=== PATIENT | female | born 1960 | race Caucasian/White ===

== ENCOUNTER → 2023-09-04 06:21 | Day surgery (SDC) | payer OTHER, SELFPAY | LOC: GI 06:21 | PROVIDERS: ATTENDING PHYSICIAN Internal Medicine Gastroenterology | DX: Z12.11 Encounter for screening for malignant neoplasm of colon (principal); D12.2 Benign neoplasm of ascending colon; D12.3 Benign neoplasm of transverse colon; K63.5 Polyp of colon; K63.89 Other specified diseases of intestine; K62.89 Other specified diseases of anus and rectum; K64.0 First degree hemorrhoids; Z98.890 Other specified postprocedural states; Z86.010 Personal history of colon polyps; Z87.19 Personal history of other diseases of the digestive system | CPT/HCPCS: 45385; 45380; 88305 ==

== ENCOUNTER → 2023-10-05 10:35 | Outpatient (REF) | payer OTHER, SELFPAY | LOC: RAD 10:35 | PROVIDERS: ATTENDING PHYSICIAN Family Medicine | DX: N28.1 Cyst of kidney, acquired (principal); R22.2 Localized swelling, mass and lump, trunk | CPT/HCPCS: 71260; 76775; Q9967 ==

== ENCOUNTER → 2023-12-26 08:09 | Outpatient (REF) | payer OTHER, SELFPAY | LOC: WDC 08:09 | PROVIDERS: ATTENDING PHYSICIAN Obstetrics & Gynecology Gynecology; FAMILY PHYSICIAN Family Medicine | DX: Z12.31 Encounter for screening mammogram for malignant neoplasm of breast (principal) | CPT/HCPCS: 77063; 77067 ==

== ENCOUNTER → 2024-08-29 07:43 | Outpatient (REF) | payer OTHER, SELFPAY | LOC: HWEVLT 07:43 | PROVIDERS: ATTENDING PHYSICIAN Radiology Vascular & Interventional Radiology | DX: I83.893 Varicose veins of bilateral lower extremities with other complications (principal) | CPT/HCPCS: 93970 ==

== ENCOUNTER → 2024-12-17 08:13 | Outpatient (REF) | payer OTHER, SELFPAY | LOC: RAD 08:13 | PROVIDERS: ATTENDING PHYSICIAN Family Medicine | DX: R07.81 Pleurodynia (principal); R10.11 Right upper quadrant pain | CPT/HCPCS: 76700 ==

== ENCOUNTER → 2024-12-27 08:22 | Outpatient (REF) | payer OTHER, SELFPAY | LOC: WDC 08:22 | PROVIDERS: ATTENDING PHYSICIAN Obstetrics & Gynecology Gynecology; FAMILY PHYSICIAN Family Medicine | DX: Z12.31 Encounter for screening mammogram for malignant neoplasm of breast (principal) | CPT/HCPCS: 77063; 77067 ==

== ENCOUNTER 2025-02-26 01:01 | Inpatient (IN) | payer OTHER, SELFPAY ==
[2025-02-25 23:05] VITALS: BP 133/86
[2025-02-25 23:06] VITALS: BP 133/86
[2025-02-25 23:14] VITALS: BMI 24.9
--- NOTE | 2025-02-25 23:15 | ED.GENMED ---
History of Present Illness
General
Chief Complaint: Fainting/Passed Out
Source: patient
Exam Limitations: none
Time Seen by Provider: 02/25/25 23:08
History of Present Illness
History of Present Illness:
See MDM
Past History
Past History
ED Past Medical History: HTN, Hypercholesterolemia and Other (Left ovary dermoid cyst)
ED Past Surgical History: Gynecological (D and C, left breast lumpectomy-benign) and Other (Left inguinal hernia repair)
Social History
Tobacco: Non-smoker
Personal:
Living: with family
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
Family History
Family History: Other (Noncontributory)
Phy Exam
Physical Exam
Physical Exam:
See MDM
Course
Orders/Labs/Results
Orders:
Orders
02/25/25 23:13
Electrocardiogram (*1) Urgent
Reason for Study: Syncope
EKG- Treatment ONCE
0.9% Sodium Chloride 1000 ml [Nss] 1,000 ml IV BOLUS
02/25/25 23:17
Complete Blood Count/With Diff Urgent
Comprehensive Metabolic Panel Urgent
Troponin I Urgent
02/26/25 00:27
Aspirin 300 mg RECTAL NOW STA
Mag Hydrox/Al Hydrox/Simeth [Maalox] 30 ml Phenobarb/Hyoscy/Atropine/Scop [] 10 ml Viscous Lidocaine 2% [Xylocaine Viscous Cup] 10 ml PO NOW
02/26/25 00:30
Mag Hydrox/Al Hydrox/Simeth [Maalox] 30 ml .ROUTE .STK-MED ONE
Phenobarb/Hyoscy/Atropine/Scop [] 10 ml .ROUTE .STK-MED ONE
Viscous Lidocaine 2% [Xylocaine Viscous Cup] 15 ml .ROUTE .STK-MED ONE
Abnormal Lab Results
02/25/25
23:17
WBC 20.5 H 10^3/uL
(4.8-10.8)
Hgb 11.0 L g/dL
(12.0-16.0)
Hct 34.9 L %
(37.0-47.0)
MCV 78.4 L fL
(81.0-99.0)
MCH 24.7 L pg
(27.0-31.0)
MCHC 31.5 L g/dL
(33.0-37.0)
RDW 15.3 H %
(11.5-14.5)
Abs Immat Gran (auto) 0.1 H 10^3/uL
(0-0.05)
Absolute Neuts (auto) 16.1 H 10^3/uL
(1.4-6.5)
Absolute Monos (auto) 1.4 H 10^3/uL
(0.1-0.6)
Neutrophils % 78.4 H %
(42.2-75.2)
Lymphocytes % 13.1 L %
(20.5-51.1)
BUN 27 H mg/dl
(7-17)
Glucose 135 H mg/dl
(70-99)
Troponin I 0.238 H* ng/ml
02/25/25 23:17
02/25/25 23:17
Vital Signs
Initial and Last Documented VS:
Initial Vital Signs
Temp Pulse Resp BP Pulse Ox
97.8 F 96 12 133/86 98
02/25/25 23:05 02/25/25 23:05 02/25/25 23:05 02/25/25 23:05 02/25/25 23:05
Last Documented Vital Signs
Temp Pulse Resp BP Pulse Ox
97.8 F 99 14 133/86 98
02/25/25 23:05 02/25/25 23:07 02/25/25 23:07 02/25/25 23:06 02/25/25 23:17
MDM/Problems Addressed
Differential Diagnosis Includes:
Note:
CHIEF COMPLAINT(S)
Syncope and gastrointestinal symptoms (vomiting and diarrhea).
HISTORY OF PRESENT ILLNESS
The patient is a 64-year-old female who reports experiencing syncope, vomiting, and diarrhea. The symptoms began today at approximately 9:00 PM. She described the room spinning, leading her to a near-syncope episode, followed by actual syncope and
multiple episodes of vomiting and diarrhea. She called her for assistance. Prior to syncope, she felt unwell with a sensation of her heart racing. Currently, she feels better.
ADDITIONAL HISTORY OBTAINED FROM SOURCES OTHER THAN THE PATIENT
Per the patient�s spouse, the patient called out before becoming unresponsive, indicating awareness of feeling unwell prior to the syncopal episode.
PHYSICAL EXAM
General: Alert, no acute distress.
Skin: Warm, dry.
Head: Normocephalic, atraumatic
Neck: Appears supple, trachea midline.
Eyes, Ears, Nose, Mouth, and Throat: Mildly dry mucous membranes
Cardiovascular: No signs of cyanosis. Regular rate and rhythm
Respiratory: Respirations are non-labored.
Abdomen: Non-distended
Musculoskeletal: No deformities. Negative [place]-Hallpike
Neurological: No focal neurological deficit observed.
Psychiatric: Cooperative, appropriate mood and affect.
PLAN
- Monitor patient on telemetry for arrhythmias.
- Obtain blood work and provide intravenous fluids.
- Consider communication with primary care physician for follow-up, including possible Holter monitor evaluation.
DIFFERENTIAL DIAGNOSIS
The Differential Diagnosis includes, in no particular order and is not limited to:
- Cardiac arrhythmia
- Gastroenteritis/Viral infection
- Vasovagal syncope
- Dehydration
- Orthostatic hypotension
- Medication side effect
- Hypoglycemia
- Anemia
- Neurological disorder such as seizure
- Vestibular disorder
SUMMARY OF ENCOUNTER
The patient presented to the emergency department with syncope and gastrointestinal symptoms (vomiting and diarrhea) that began earlier today. Initial management in the emergency department includes telemetry monitoring and intravenous fluid
administration. The patient has a history of a similar episode two years ago when she was diagnosed with sepsis. Her symptoms have improved since her arrival in the emergency department.
MEDICAL DECISION MAKING
- Number and Complexity of Problems Addressed:
Chronic conditions affecting care [N/A]
- Data:
Category 1:
- Independent review of telemetry monitoring.
- Risk:
Consideration of Admission/Observation: Escalation of care including admission/observation was considered given the complexity and risk of the patients presenting complaint, exam findings, and/or their underlying comorbidities. However, ultimately,
I feel the patient is safe for outpatient management with close follow-up. Reasoning: Work-up reassuring, does not reveal any acute life/organ-threatening processes, patients symptoms well controlled upon reevaluation, reexamination is reassuring,
vitals are stable, patient agreeable with discharge, reliable for follow-up.
EKG
My independent EKG interpretation is:
- Rhythm: Sinus rhythm
- Heart rate: 87 beats per minute
- Notable interval: First degree AV block noted
- [place]: Normal axis
- ST segment changes: No ST elevation
- QT interval: Mildly prolonged
SUMMARY OF ENCOUNTER
The patient, a 64-year-old female, presented to the emergency department for evaluation of syncope, vomiting, diarrhea, and recent chest pressure. Upon work-up, she was found to have leukocytosis and an elevated troponin level at 0.238, indicating
possible cardiac involvement. However, the EKG did not show ischemic changes, although the patient did report chest pressure earlier in the day, raising concerns for an atypical anginal equivalent. The patient is not currently experiencing chest
pain or shortness of breath but does have mild reflux symptoms. Management in the emergency department involves telemetry monitoring, intravenous fluids, and administration of rectal aspirin due to her hesitance to take NSAIDs orally because of
reflux concerns.
DISPOSITION
Admit for troponin trending and further work-up.
ASSESSMENT
Elevated troponin in the context of previous chest pressure and recent syncopal episode raises concern for possible acute coronary syndrome, though the lack of ischemic changes on EKG makes other differential diagnoses such as gastroenteritis or
vasovagal syncope, equally compelling. However, due to the cardiac biomarkers and presenting symptoms, inpatient admission for further observation and evaluation is warranted.
EMERGENCY TREATMENTS ADMINISTERED
Rectal aspirin administered for cardiovascular protection.
PLAN
Admit the patient for further observation, including troponin trending and cardiac monitoring. Continue evaluation for potential causes of syncope and gastrointestinal symptoms.
INDEPENDENT REVIEW OF LABS AND INTERPRETATION OF TESTS
My independent review of CBC indicates leukocytosis.
ADDITIONAL TESTING AND IMAGING CONSIDERED
Further cardiac imaging such as an echocardiogram was considered but deferred to inpatient admission for a more comprehensive workup.
MEDICATION RECONCILIATION
Aspirin (rectal route) administered during the visit due to hesitance for oral NSAIDs.
MEDICAL DECISION MAKING
-Complexity of Data Reviewed: Chronic conditions affecting care include the patients previous history with sepsis two years ago, noting differential diagnoses such as cardiac arrhythmia, gastroenteritis/viral infection, vasovagal syncope,
dehydration, orthostatic hypotension, medication side effects, hypoglycemia, anemia, neurological disorder such as seizure, and vestibular disorder.
-Data:
Category 1
Tests and documents: Elevated troponin level identified, leukocytosis found in lab results, EKG independently interpreted showing no ischemic changes.
Category 2
Clinical information obtained from an independent historian: Input from the patients spouse regarding her awareness prior to the syncopal episode.
Category 3
No discussions with other healthcare providers explicitly mentioned.
-Risk:
Admission for trending of troponin levels due to elevated troponin and possible cardiac risk, with consideration of further diagnostic testing and monitoring.
DIAGNOSIS
- Syncope, ICD-10: R55
- Gastroenteritis, unspecified, ICD-10: A09
- Elevated cardiac biomarkers, likely due to acute coronary syndrome, ICD-10: I21.4
*Pulse Oximetry
SaO2: 98
Oxygen Mode of Delivery: Room air
Patient hypoxic: no
*Critical Care Note
Total Time (30-74mins, 75-104mins- exclusive of procedures): Not Applicable
ED Attending Note
-
Portions of this chart may have been created with voice recognition software.� Occasional wrong word or��sound alike� substitutions may have occurred due to the inherent limitations of voice recognition software.
Discharge Plan
Departure
Patient Disposition: Admit
Date of Disposition: 02/26/25
Time of Disposition: 00:35
Admit to: Telemetry
Presentation/result/management discussed w/ accepting MD/DO: Hospitalist
Discharge Problem:
Syncope
Prescriptions:
No Action
lisinopril 20 mg Tablet
20 mg PO DAILY Qty: 0
alprazolam 0.25 mg Tablet
0.25 mg PO DAILY PRN (Reason: anxiety) Qty: 0
famotidine 20 MG tablet
20 mg PO DAILY PRN (Reason: heartburn)
cholecalciferol (vitamin D3) 25 mcg (1,000 unit) Tablet
25 mcg PO WEEKLY Qty: 0
lisinopril-hydrochlorothiazide 20-12.5 mg tablet
1 tab PO QPM
dicyclomine 10 mg Capsule
10 mg PO QID Qty: 20 0RF
metronidazole 500 mg Tablet
500 mg PO TID Qty: 21 0RF
levofloxacin 500 mg Tablet
500 mg PO DAILY Qty: 7 0RF
Referrals:
Haydee Loco MD [Family Provider, Family Practice]
Interventions
Interventions:
*Risk Screen - Suicide Last Done: 02/25/25 23:09
*General Assessment Last Done: 02/25/25 23:09
*Neglect/Abuse Screening Last Done: 02/25/25 23:09
*ED COVID-19 Vaccine History Last Done: 02/25/25 23:09
*ED Influenza Vaccine History Last Done: 02/25/25 23:09
[facility] Fall Risk Assessment Tool Last Done: 02/25/25 23:14
ED- Cardiac Assessment Last Done: 02/25/25 23:13
ED- Neurological Assessment Last Done: 02/25/25 23:13
Discharge Date and Time
Print Language: BANGLADESHI
[2025-02-25] MEDS: NSS 1000 IV (23:20)
[2025-02-25 23:30] LABS: Hematocrit 34.9 % (37.0-47.0); Hemoglobin 11.0 g/dL (12.0-16.0); Mean Corp Hgb Conc. 31.5 g/dL (33.0-37.0); Mean Corpuscular Volume 78.4 fL (81.0-99.0); Nucleated Red Blood Cells % 0 %; Platelet Count 388 10^3/uL (130-400); Red Cell Dist. Width 15.3 % (11.5-14.5)
[2025-02-26] VITALS (18 sets, daily range): BP systolic 102–152; BP diastolic 67–115; BMI 25.1
[2025-02-26] LABS: ALT (SGPT) 20 U/L (0-35); AST (SGOT) 25 U/L (14-36); Albumin 4.3 g/dl (3.5-5.0); Alkaline Phosphatase 64 U/L (38-126); Blood Urea Nitrogen 27 mg/dl (7-17); Calcium 9.8 mg/dl (8.4-10.2); Carbon Dioxide 27 mmol/L (22-30); Chloride 104 mmol/L (98-107); Estimated Creatinine Clearance 74 ml/min; Glucose 135 mg/dl (70-99); Potassium 3.8 mmol/L (3.5-5.1); Sodium 137 mmol/L (135-145); Total Protein 7.2 g/dl (6.3-8.2); eGFR > 60.00
[2025-02-26 00:17] LABS: Troponin I 0.238 ng/ml
[2025-02-26] MEDS: MAALOX 50 PO (00:33)
[2025-02-26] MEDS: ASPIRIN 300 MG RECTAL (00:33)
--- NOTE | 2025-02-26 01:29 | HPS.HSE ---
Family Physician
-
Family Physician: Haydee Loco
Chief Complaint
-
chest pressure syncopal episode
History of Present Illness
64 female history of hypertension hyperlipidemia left ovary dermoid cyst who presents after syncopal episode while on the toilet and vomiting. Prior to this admits to chest pressure midsternal heart beating hard nonradiating with associated nausea
subsequently making her vomit. Syncopal episode was witnessed on toilet by her . states that she was talking and passed out while vomiting. Downtime approximately 1 minute was not confused. When she came to she has for rescue
squad to be called.
Should be noted she did admit to taking 600 mg of Advil in the morning and 400 mg Aleve in the evening. She typically takes this on a full stomach. And even sometimes will take it with Pepcid AC. She cannot tolerate Prilosec secondary to
headaches.
Additionally had a stress test November 2023 without concerning findings. Follows with Dr. Keyes
Medical History
Past Medical History
Past Medical History: Reports HTN
Past Surgical History: Reports Gynocological
Social History
Tobacco: Non-smoker
Alcohol: None
Drug: None
Personal:
Living: With Family
Family History
Family History: Not pertinent
Allergies / Home Medications
Allergies reflects when Allergies were last updated in [facility].
Home Medications with original date entered in [facility]
Allergy/Medication List:
Allergies
Allergy/AdvReac Type Severity Reaction Status Date / Time
No Known Allergies Allergy Verified 10/12/22 12:38
Home Medications
alprazolam 0.25 mg tablet 0.25 mg PO DAILY PRN anxiety ##0 11/24/20
lisinopril 20 mg tablet 20 mg PO DAILY Blood Pressure ##0 11/24/20
cholecalciferol (vitamin D3) 25 mcg (1,000 unit) tablet 25 mcg PO WEEKLY Supplement ##0 10/06/21
famotidine 20 mg tablet 20 mg PO DAILY PRN heartburn 12/23/20
lisinopril 20 mg-hydrochlorothiazide 12.5 mg tablet 1 tab PO QPM Blood Pressure 10/12/22
dicyclomine 10 mg capsule 10 mg PO QID #20 caps 10/16/22
levofloxacin 500 mg tablet 500 mg PO DAILY #7 tabs 10/16/22
metronidazole 500 mg tablet 500 mg PO TID #21 tabs 10/16/22
Review of Systems
-
A 12 point ROS was completed and negative except as noted: Yes
Physical Exam
Vital Signs
Vital Signs
Temp Pulse Resp BP Pulse Ox
97.8 F 102 21 140/96 97
02/25/25 23:05 02/26/25 01:00 02/26/25 01:00 02/26/25 01:00 02/26/25 01:00
Physical Exam
General: Well Developed, Well Nourished and No Apparent Distress
HEENT: NormoCephalic and Anicteric
Respiratory: Clear
Cardiac: S1/S2 and Regular Rhythm
GI: Soft, Non Tender, Non Distended and Normal Bowel Sounds
Musculoskeletal: No Clubbing and No Cyanosis
Skin: Warm and Dry
Neuro: Awake and AO x 3
Psych: Calm
Laboratory Results
-
02/25/25 23:17
02/25/25 23:17
Laboratory Results
Total Bilirubin 0.3 mg/dl (0.2-1.3) 02/25/25 23:17
AST 25 U/L (14-36) 02/25/25 23:17
ALT 20 U/L (0-35) 02/25/25 23:17
Alkaline Phosphatase 64 U/L (38-126) 02/25/25 23:17
Troponin I 0.238 ng/ml H* 12/09/25 23:17
Impression/Plan
-
Syncopal episode
Differential diagnosis includes ACS versus for seizure but less likely versus vasovagal versus orthostatic hypotension/orthostasis, PE though less likely as not hypoxic and Wells score 1.5 for tachycardia greater than 100
Orthostatic vitals
2D echocardiogram
Telemetry
Repeat EKG
Consult cardiology
Check D-dimer
NSTEMI
Trend troponin to peak
Heparinized, discussed risk vs benefits with Ms. Norton and at bedside, both elect to proceed with initiation of Hep gtt
-If trop trending down or cards beleives less like ACS then can consider to DC hep gtt
N.p.o. for potential LHC
Consult cardiology
2D echocardiogram
Check D-dimer
Hypertension
On lisinopril 20 mg daily as outpatient
[2025-02-26 02:19] LABS: Hematocrit 32.3 % (37.0-47.0); Hemoglobin 10.3 g/dL (12.0-16.0); Mean Corp Hgb Conc. 31.9 g/dL (33.0-37.0); Mean Corpuscular Volume 79.2 fL (81.0-99.0); Platelet Count 319 10^3/uL (130-400); Red Cell Dist. Width 15.3 % (11.5-14.5)
[2025-02-26] MEDS: 0.45%NACL 1000 IV (02:19)
[2025-02-26] MEDS: HEPARIN 25000 UNITS/250 ML IV (02:20)
[2025-02-26 02:22] LABS: APTT 26.2 Sec (23.4-35.0)
[2025-02-26 02:32] LABS: D-Dimer 7.09 ug/mlFEU (0.00-0.50)
[2025-02-26 02:45] LABS: Blood Urea Nitrogen 22 mg/dl (7-17); Calcium 8.4 mg/dl (8.4-10.2); Carbon Dioxide 22 mmol/L (22-30); Chloride 110 mmol/L (98-107); Estimated Creatinine Clearance 84 ml/min; Glucose 124 mg/dl (70-99); HDL Cholesterol 61 mg/dl; LDL Cholesterol, Calculated 137 mg/dl; Potassium 3.6 mmol/L (3.5-5.1); Sodium 140 mmol/L (135-145); Very Low Density Lipoprotein 10 mg/dl (0-30); eGFR > 60.00
[2025-02-26 03:01] LABS: Troponin I 0.687 ng/ml
[2025-02-26] MEDS: XANAX 0.25 MG PO (03:08)
--- NOTE | 2025-02-26 04:45 | PTCARENOTE ---
Rec'd pt as admission from ED. Pt admission complete. Pt AAO*3, VSS, and Stach on tele monitor. Pt bp elevated in the 150's systolic and pt reports being anxious. MIRANDA finch notified and rec'd order for one time Xanax. Given to pt as ordered
and heparin initiated with fluids as ordered. Pt denies any pain or discomfort currently. Ddimer resulted at 7.09 MIRANDA finch notified and rec'd order for stat CT scan of lungs. Pt escorted down to ed ct scan with RN in hospital bed. Pt brought
back to unit and now resting with call abdalla in reach. See MAR and flowchart for full pt care and assessment.
[2025-02-26 07:19] LABS: Glycohemoglobin (HgbA1c) 6.0 % (4.0-5.9)
[2025-02-26 09:16] LABS: APTT 44.9 Sec (23.4-35.0)
--- NOTE | 2025-02-26 09:20 | CON.CAR ---
Addendum entered and electronically signed by Luiz Keyes MD 02/26/25 11:01:
I saw and examined the patient independently and performed majority of MDM.
The MANAGER CATH LAB's note was reviewed and I agree with the note with changes/additions below.
Comment: 64 yo female with PMH of HTN, dyslipidemia, 1st degree AVB, left breast cancer s/p lumpectomy and radiation 2014 is admitted with chest tightness, GI upset, syncope. She felt anxiety and chest tightness around 9pm, then some GI upset, and
subsequently syncope after a bowel movement. She feels back to baseline now. Exam with RRR, no murmurs, no edema. TnI 0.659 and rising. EKG with NSR, 1st degee AVB, nonspecific ST abnl.
Chest tightness, syncope, elevated troponin. Concern for ACS, which is a threat to life, and started on ASA and heparin drip. Golden is also on ddx. Will start with echo, and then decide on plan for cardiac cath.
h/o left breast cancer and radiation. This increases her risk for CAD and valvular heart disease.
Original Note:
Consultation
Consultation Request
Date/Time Consultation Requested: 02/26/25137
Date/Time Consultation Performed: 02/26/25919
Requesting Provider: Dr. Colt Pradhan
Performing Provider: Haley JEAN for Dr. Keyes
Reason for Consultation: syncope
Medical History
-
Chief Complaint: syncope
History of Present Illness:
64 y/o female (has seen Dr. Keyes in OP office once in 2022) with HTN, 1st degree AVB, dyslipidemia, anxiety, preDM, and left breast cancer 2014 (lumpectomy and radiation, no chemo). She is here for evaluation after last night around 9 PM, she was
walking in her house and developed midsternal chest tightness for about 15 minutes. Her stomach felt upset and gassy and she had a BM. Afterward, while still on the toilet, she became dizzy and called her to come into the bathroom where she
passed out. She did not fall became he was there to support, but when she came to she noted she had vomited. She came to the ER and is admitted for further evaluation. Troponin is elevated 0.687. She looks and feels fine at the time of my
assessment, just some fatigue now. No CP. D-dimer was elevated, but no PE on CT scan. She is ST on monitor. She has leukocytosis, but denies any fever or chills. Of note, she was hospitalized with sepsis and colitis 2 years ago- she passed out prior
to that as well, and felt to be GI related. Trops were abnormal 0.1. [place] to be acute, non-ischemic myocardial injury secondary to acute illness. Follow-up stress echo was normal.
Past Medical History
Past Medical History: Cancer, HTN, Hypercholesterolemia and Psychiatric (anxiety)
Social History
Tobacco: Non-Smoker
Family History
Family History: CAD (dad [place] age 65)
Allergies / Home Medications
Allergy/AdvReac Type Severity Reaction Status Date / Time
No Known Allergies Allergy Verified 10/12/22 12:38
�Medication �Instructions �Recorded �Confirmed �Type
alprazolam 0.25 mg tablet 0.25 mg PO DAILY PRN anxiety ##0 11/24/20 02/26/25 History
lisinopril 20 mg tablet 20 mg PO DAILY Blood Pressure ##0 11/24/20 02/26/25 History
famotidine 20 mg tablet 20 mg PO DAILY PRN heartburn 12/23/20 02/26/25 History
Review of Systems
-
History Source: Patient
All other systems: Negative unless noted
Cardiac: Chest Pain and Syncope
Abdomen/GI: Vomiting and Other (upset stomach, gassy)
Neurological: Dizzy
Physical Exam
Vital Signs
Temp Pulse Resp BP Pulse Ox
98.7 F 107 20 134/77 97
02/26/25 07:57 02/26/25 03:59 02/26/25 07:57 02/26/25 03:59 02/26/25 07:57
Lab Results
02/26/25 02:08
02/26/25 02:08
Troponin I 0.687 ng/ml H* D 02/26/25 02:08
Physical Exam
General: Well Developed, Well Nourished and No Apparent Distress
HEENT: Normocephalic and Anicteric
Respiratory: Clear and Non Labored Respirations
Cardiac: Regular Rhythm
Musculoskeletal: No Edema
Skin: Warm and Dry
Neuro: AO x 3
Psych: Calm
Impression / Plan
-
Syncope:
-possible vagal in setting of GI symptoms as noted in detail, but cardiac evaluation as below
-telemetry shows sinus tachycardia- continue to follow
-no PE on CT scan
-abnormal troponin- see below
-checking echo
Abnormal troponin:
-etiology unclear, but possible ACS (diagnosis that is threat to life); patient had chest pain yesterday as noted in detail and EKG with NS anterior ST changes- repeat. Takotsubo also in differential. CP free now. No SOB.
-trend troponin to peak, obtain echo
-continue IV heparin, which requires intensive monitoring. Received 300 mg ASA LA early this AM- will start aspirin 81 mg daily this AM.
-may need cardiac cath
Leukocytosis:
-denies any fever or chills
-sinus tachycardia is noted
-w/u/management per primary
Hypertension:
-stable overall
-on ACEI as OP
Anemia:
-follow
Data Reviewed
-
EKG: Tracing Personally Visualized and interpreted (SR with 1st degree AVB, NT ST changes anterior)
CT Scan: Report Reviewed by me (Chest: no acute disease of the chest. No pulmonary embolus. Hepatic cysts. Stable Findings consistent with minimal emphysematous disease. Stable)
Medical Tests (Nuc Med, Echo etc): Other (stress echo 2022: no evidence for ischemia)
Labs: Labs Reviewed by me
[2025-02-26 09:41] LABS: Troponin I 0.659 ng/ml
--- NOTE | 2025-02-26 10:15 | CM ---
Reviewed chart. Met with Mrs. Norton to review discharge plans. She states prior to admission she resides with her spouse in a two story home with four steps to enter from the side door, two steps from the front door and a full flight from the
basement. She states she has a full flight of steps to get to bedroom/ full bathroom.. 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 She states prior to admission she was
independent with ambulation and adls. She states she does not have any DME in the home. She states she has a prescription plan and uses [facility]. Will need to see her current functional level to see if she will have any skilled care needs.
Medical work-up in progress. The discharge plan is to return home with her spouse when medically stable.
--- NOTE | 2025-02-26 10:27 | PTCARENOTE ---
received patient this am very anxious, talked to patient and about plan today that we need to wait for cardiology to come see her. monitor shows NSR with a first degree, IV heparin @ 1300 units /hr via left ac. patient remains NPO unil
plans are made. EKG completed as ordered and aspirin 81 po given as ordered.
--- NOTE | 2025-02-26 10:38 | CARDSERVLU ---
Echocardiogram with Lumason completed after protocol screening completed. Allergies verified.
Patent IV site: __L AC ___
IV site flushed with 0.9% NaCl pre and post administration.
Diluted bolus method utilized to enhance visualization of ventricular sharma.
Total volume given: _2.5___ mL
Patient tolerated all procedures well without complications.
[2025-02-26] MEDS: LOW STRENGTH ASPIRIN 81 MG PO (10:49)
--- NOTE | 2025-02-26 11:25 | W.PN.UPDATE ---
Update Note
Progress Note Update
Patient seen and examined after postmidnight admission. Currently denies any chest pain. Vital signs stable. No acute distress, awake and alert. Regular rate and rhythm, normal S1-S2. Clear to auscultation bilaterally. Case discussed with
Stephy. I personally reviewed the patient's echocardiogram with him. She has hypokinesis at the apex. Likely going for cardiac cath today.
[2025-02-26] MEDS: TOPROL XL 25 MG PO (11:45)
--- NOTE | 2025-02-26 13:45 | PTCARENOTE ---
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 instructed patient on post cath procedures, verbalizes understanding. Monitor shows NSR, VSS. Dr. Mcqueen at bedside.
--- NOTE | 2025-02-26 14:39 | ITS.CL.CATH ---
[facility] - Catheterization
Cardiac Catheterization
Procedure Report:
CARDIAC CATHETERIZATION REPORT
Date of Procedure: 02/26/2025
Referring: Luiz Keyes M.D., Ph.D.
INDICATION: Non-ST elevation myocardial infarction.
PROCEDURE:
1. Left heart catheterization.
2. Coronary angiography.
3. Left ventriculography.
A total of 33 minutes of procedural/moderate sedation was utilized. An independent medical coding instructor was present to assist with and help manage the patient's level of consciousness and physiologic status.
ACCESS:
1. 6 [place]in right radial artery using a modified Seldinger technique delete delete the.
CATHETERS:
1. 5 [place] JR4.
2. 5 [place]in JL 3.5.
3. 5 [place] multipurpose.
4. 5 [place]in angled pigtail.
HEMODYNAMIC DATA
Weight (kg): 74.4
AO (s/d/x, mmHg): 114/75/94
LV (s/x mmHg): 114/9
AV gradient (x, mmHg): None.
LEFT VENTRICULOGRAPHY: Normal left ventricular size with hyperdynamic function of the basal and mid ventricle with akinesis/mild dyskinesis of the apex. Left ventricular ejection fraction estimated at 75%. There is mild mitral regurgitation.
There is no aortic valve insufficiency. The aortic root, ascending aorta and visualized descending thoracic aorta appear normal.
CORONARY ANGIOGRAPHY
Dominance: Left.
Left Main: Normal size, bifurcating vessel. There is no coronary artery disease.
LAD: Normal size vessel giving rise to 1 significant diagonal. There is no coronary artery disease. The mid and distal vessel as well as the diagonal are severely tortuous.
Ramus: Congenitally absent.
Circumflex: Large size, dominant vessel giving rise to 1 large obtuse marginal before terminating as an LPDA. The first obtuse marginal bifurcates into 2 medium to large sized branches. There is severe tortuosity in both OM branches as well
as the LPDA. There is no coronary artery disease.
RCA: Small size, nondominant vessel with a low-lying, anterior origin, best cannulated by a multipurpose catheter.
INTERVENTION(S)
None.
Closure Device: Vascular band.
Radiation (mGy): 270
DAP (cm2.Gy): 11.2
Fluoroscopy time (minutes): 3.7
CONCLUSIONS
1. Left dominant circulation with no coronary artery disease. The distal coronary vessels are severely tortuous.
2. Normal filling pressures (LVEDP = 9 mmHg at 74.4 kg).
3. Hyperdynamic systolic function of the base and mid ventricle with akinesis/dyskinesis of the apex, possibly focal myocarditis versus Takotsubo variant. Left ventricular ejection fraction estimated at 75%.
RECOMMENDATIONS:
1. Expectant management after cardiac catheterization via right radial approach.
2. Limited weight bearing on the right wrist for one week.
3. GDMT as hemodynamics will tolerate. No role for diuresis at this time.
4. Trend troponin to peak.
Copy to: Luiz Keyes M.D., Ph.D., Haydee Loco M.D.
Yehuda Mcqueen DO, FACC, FACP
--- NOTE | 2025-02-26 23:32 | PTCARENOTE ---
Rec'd pt at change of shift. Pt AAO*3, VSS, and SR on tele monitor. Pt denies any pain or discomfort. R radial site CDI. Pt updated on discharge planning and now resting with call abdalla in reach. See MAR and flowchart for full pt care and
assessment.
[2025-02-27 03:03] VITALS: BP 133/84
[2025-02-27 03:18] VITALS: BMI 24.9
[2025-02-27 04:01] LABS: Hematocrit 27.5 % (37.0-47.0); Hemoglobin 8.8 g/dL (12.0-16.0); Mean Corp Hgb Conc. 32.0 g/dL (33.0-37.0); Mean Corpuscular Volume 79.0 fL (81.0-99.0); Platelet Count 270 10^3/uL (130-400); Red Cell Dist. Width 15.4 % (11.5-14.5)
[2025-02-27 04:29] LABS: Blood Urea Nitrogen 13 mg/dl (7-17); Calcium 9.1 mg/dl (8.4-10.2); Carbon Dioxide 25 mmol/L (22-30); Chloride 106 mmol/L (98-107); Estimated Creatinine Clearance 84 ml/min; Glucose 100 mg/dl (70-99); Potassium 3.9 mmol/L (3.5-5.1); Sodium 137 mmol/L (135-145); eGFR > 60.00
[2025-02-27 07:56] VITALS: BP 120/89
[2025-02-27] MEDS: TOPROL XL 25 MG PO (07:57)
[2025-02-27] MEDS: LOW STRENGTH ASPIRIN 81 MG PO (07:57)
[2025-02-27] MEDS: ZESTRIL 20 MG PO (07:57)
--- NOTE | 2025-02-27 08:50 | W.PN.HOSP.TC ---
Addendum entered and electronically signed by Taj Medina MD 02/27/25 12:31:
Total time spent on d/c = 34 min. This included today's physical exam, progress note, review of laboratory and diagnostic data, preparation of discharge documents and prescriptions, and discussions about the pt's hospital course and discharge plan
with the patient and other biomedical specialist involved in the patient's care.
Original Note:
Today's Communication/Plan
-
see plan
Assessment / Plan
Assessment / Plan
Gen: NAD, AAOx3.
Eyes: EOMI, PERRLA, no scleral icterus.
Neck: supple.
CV: remains RRR, +S1/S2, no m/r/g.
Resp: CTAB anteriorly, no rales, wheezes, or rhonchi.
Skin: No rashes. R radial cath site without hematoma, 2+ radial pulse
Neuro: CN 2-12 intact, non-focal.
Psych: Normal mood and affect.
CTA chest: No acute disease of the chest. No pulmonary embolus. Hepatic cysts. Stable. Findings consistent with minimal emphysematous disease. Stable. If the patient has emphysema, patient should be assessed for an annual low dose lung cancer CT
program, as pulmonary emphysema is an independent risk factor for lung cancer.
Echo:
1. Left ventricular ejection fraction is overall normal with an ejection fraction of 55-60%.
2. The apex is akinetic, and the other segments are hyperdynamic.
3. Moderate eccentric mitral valve regurgitation. (Image 49.).
4. Compared to 10/13/22: Apical akinesis is now present, and mitral regurgitation has progressed from trace to moderate.
LHC:
1. Left dominant circulation with no coronary artery disease. The distal coronary vessels are severely tortuous.
2. Normal filling pressures (LVEDP = 9 mmHg at 74.4 kg).
3. Hyperdynamic systolic function of the base and mid ventricle with akinesis/dyskinesis of the apex, possibly focal myocarditis versus Takotsubo variant. Left ventricular ejection fraction estimated at 75%.
Takutsubo cardiomyopathy, with acute non-ischemic myocardial injury:
-Presented with chest pressure and a syncopal episode
-trop peaked at 0.687, now trending down
-note syncopal episode was after a bowel movement and was likely vasovagal
-echo above and notable for akinetic apex
-cath above, no CAD
-case discussed at length with Dr. Keyes
Microcytic anemia:
-h/o chronic anemia
-no evidence of active bleeding
-repeat Hb prior to d/c
-check Fe studies for outpt f/u
Other problems:
Essential HTN: cont BB/ACEi
Leukocytosis: likely reactive, now resolved
HLD
1st degree AVB
L breast CA s/p lumpectomy and radiation 2014
FULL
DVT proph: was on heparin gtt prior. Start SCDs.
Anticipated Discharge: Today
Subjective/Interval History
-
Date of Service: February 27, 2025
Denies CP/SOB. Also denies melena/hematochezia/hematuria or any other evidence of bleeding.
Objective Data
-
Labs:
Laboratory Results
02/26/25 02/27/25
15:30 03:15
WBC 8.6
Hgb 8.8 L
Hct 27.5 L
Plt Count 270
APTT Cancelled
Sodium 137
Potassium 3.9
Chloride 106
Carbon Dioxide 25
BUN 13
Creatinine 0.7
Glucose 100 H
Calcium 9.1
Vital Signs:
Vital Signs
Temp Pulse Resp BP Pulse Ox
98.5 F 71 15 133/84 97
02/27/25 07:56 02/27/25 07:00 02/27/25 07:56 02/27/25 03:03 02/27/25 07:56
I&O
02/26/25 02/27/25 02/28/25
06:59 06:59 06:59
Intake Total 546 / 546 816 / 816
Balance 546 / 546 816 / 816
[2025-02-27 09:32] VITALS: BP 114/77
[2025-02-27 09:34] VITALS: BP 124/70
--- NOTE | 2025-02-27 10:00 | CM ---
Reviewed chart. Met with Mrs. Norton to review discharge plans. She states she is feeling well and maybe able to go home soon. Prior to admission she resides with her spouse in a two story home with four steps to enter from the side door, two steps
from the front door and a full flight from the basement. She has a full flight of steps to get to bedroom/ full bathroom.. 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 Prior to
admission she was independent with ambulation and adls. She does not have any DME in the home. She has a prescription plan and uses [facility]. Will need to see her current functional level to see if she will have any skilled care needs.
Medical work-up in progress. The discharge plan is to return home with her spouse when medically stable.
--- NOTE | 2025-02-27 10:25 | W.PN.CD ---
Today's Communication / Plan
-
move Toprol XL to 25mg qHS
continue lisinopril 20mg daily
repeat Hgb, then decide on discharge planning
Impression / Plan
-
Takutsubo cardiomyopathy, with acute non-ischemic myocardial injury
-EF is overall preserved with apical akinesis
-started Toprol XL 25mg daily this admission: will move to qHS dosing due to fatigue; and will not titrate dose at this time
-will repeat echo as outpatient in 6-12 week window
Anemia: acute on chronic, type unspecified
-repeat Hgb
Leukocytosis: resolved
Hypertension:
-stable: continue lisinopril 20mg daily
Physical Exam
Vital Signs/Labs
Vital Signs
Temp Pulse Resp BP Pulse Ox
98.5 F 79 15 124/70 98
02/27/25 07:56 02/27/25 10:00 02/27/25 07:56 02/27/25 09:34 02/27/25 07:56
02/26/25 02/27/25 02/28/25
06:59 06:59 06:59
Actual Weight 74.8 kg 74.2 kg
02/27/25 03:15
APTT Cancelled 02/26/25 15:30
Triglycerides 52 mg/dl (10-149) 02/26/25 02:08
LDL Cholesterol, Calc 137 mg/dl 02/26/25 02:08
VLDL Cholesterol, Calc 10 mg/dl (0-30) 02/26/25 02:08
HDL Cholesterol 61 mg/dl 02/26/25 02:08
LAB Results
02/25/25 02/26/25 02/26/25
23:17 02:08 08:35
Troponin I 0.238 H* 0.687 H* D 0.659 H*
02/26/25
17:38
Troponin I Cancelled
Physical Exam
Constitutional: No acute distress and Comfortable
EENT: Moist mucous membranes
Cardiovascular: Rhythm & rate is regular, Pedal edema is absent, JVD pressure is normal and Systolic murmur absent
Respiratory: Respiratory effort normal and Lungs clear to auscul.
Neuro/Psych: AO x 3
Data Reviewed
-
Date of Service: February 27, 2025
EKG: Other (Tele: NSR 70s, no arrhythmia)
Labs: Labs Reviewed by me
[2025-02-27 11:13] LABS: Iron 58 ug/dl (37-170)
[2025-02-27 11:14] LABS: Hemoglobin 9.5 g/dL (12.0-16.0)
[2025-02-27 11:22] LABS: Total Iron Binding Capacity 343 ug/dl (265-497)
--- NOTE | 2025-02-27 11:31 | PTCARENOTE ---
Patient denies lightheadedness, just feeling fatigued. walking in the room. VSS. Repeat Hgb 9.5, using call abdalla for assistance
[2025-02-27 11:47] VITALS: BP 138/90
[2025-02-27 12:02] LABS: Ferritin 11.3 ng/ml (11.1-264.0)
--- NOTE | 2025-02-27 12:51 | PTCARENOTE ---
Patient discharged to home. IV and telemetry removed. Discharge teaching provided, she verbalized understanding. Patient escorted to [facility] in a wheelchair
--- NOTE | 2025-02-27 13:57 | W.DCSUMMARY ---
Discharge Summary
Discharge Data
Date of Admission: 02/26/25
Date of Discharge: 02/27/25
-
Pending Results: No
Hospital Course
Primary diagnoses:
Takutsubo cardiomyopathy, with acute non-ischemic myocardial injury
Syncope, likely vasovagal
Secondary diagnoses:
Microcytic anemia
Essential hypertension
Leukocytosis, reactive
Hyperlipidemia
1st degree AVB
L breast CA s/p lumpectomy and radiation 2014
Consultants:
Cardiology
Imaging:
CTA chest: No acute disease of the chest. No pulmonary embolus. Hepatic cysts. Stable. Findings consistent with minimal emphysematous disease. Stable. If the patient has emphysema, patient should be assessed for an annual low dose lung cancer CT
program, as pulmonary emphysema is an independent risk factor for lung cancer.
Echo:
1. Left ventricular ejection fraction is overall normal with an ejection fraction of 55-60%.
2. The apex is akinetic, and the other segments are hyperdynamic.
3. Moderate eccentric mitral valve regurgitation. (Image 49.).
4. Compared to 10/13/22: Apical akinesis is now present, and mitral regurgitation has progressed from trace to moderate.
LHC:
1. Left dominant circulation with no coronary artery disease. The distal coronary vessels are severely tortuous.
2. Normal filling pressures (LVEDP = 9 mmHg at 74.4 kg).
3. Hyperdynamic systolic function of the base and mid ventricle with akinesis/dyskinesis of the apex, possibly focal myocarditis versus Takotsubo variant. Left ventricular ejection fraction estimated at 75%.
Hospital course: 64-year-old female who was admitted yesterday with chief complaints of chest pressure and a syncopal episode as outlined in the H&P done on admission. The patient's troponins peaked at 0.687 and then trended down. Note that her
syncopal episode was after a bowel movement and was likely vasovagal. Echo above and notable for akinetic apex. Cardiac cath above and without CAD. Case discussed at length with Dr. Keyes. The patient was diagnosed with Takutsubo cardiomyopathy,
with acute non-ischemic myocardial injury. She was discharged in medically stable condition.
Discharge Plan
-
Patient Disposition: Home (Routine Discharge)
Discharge Diagnosis/Procedures: Takutsubo cardiomyopathy, with acute non-ischemic myocardial injury, cardiac catheterization
Condition: Good
Diet: Low Cholesterol and Low Sodium
Activity: As tolerated
Driving Restrictions: As prior to admission
Activity Restrictions/Additional Instructions:
Please discuss workup of your anemia with your primary care physician.
Stand Alone Forms: DC Instructions- Cath/EP Lab
Referrals:
Yehuda Mcqueen DO [Active, Cardiology] - 03/27/25 9:20 am
Haydee Loco MD [Family Provider, [facility]] - in less than 1 week
Prescriptions:
New
metoprolol succinate 25 mg Tablet Extended Release 24 Hr
25 mg PO HS Qty: 30 0RF
Continued
lisinopril 20 mg Tablet
20 mg PO DAILY Qty: 0
alprazolam 0.25 mg Tablet
0.25 mg PO DAILY PRN (Reason: anxiety) Qty: 0
famotidine 20 MG tablet
20 mg PO DAILY PRN (Reason: heartburn)
Discharge Orders:
Discharge Patient (As Directed); Ordered 02/27/25
Ordered By: Taj Medina
Care Plan Goals
Care Plan Goals:
Problem: Readiness for enhanced knowledge related to diagnosis and treatment plan
Goal: Understand your diagnosis and treatment plan needs, including medications if applicable.
Instructions: Know your diagnosis, underlying causes and treatment plan options, including medications if applicable. Consult with your health care team to learn about your diagnosis and treatment plan, including medications if applicable.
Discharge Date and Time
Discharge Date/Time: 02/27/25 13:00
Print Language: SLOVENIAN
== END 2025-02-27 13:00 | disposition home or self-care (01) | DRG 287 ==
LOC: IVU 01:01
PROVIDERS: Internal Medicine Cardiovascular Disease; Nurse Practitioner; ADMITTING PHYSICIAN Hospitalist; ATTENDING PHYSICIAN Internal Medicine; CONSULT PHYSICIAN Internal Medicine; EMERGENCY PHYSICIAN Student in an Organized Health Care Education/Training Program; FAMILY PHYSICIAN Family Medicine
PROC: 4A023N7 Measurement of Cardiac Sampling and Pressure, Left Heart, Percutaneous Approach (ICD-10-PCS; 2025-02-26)
PROC: B2151ZZ Fluoroscopy of Left Heart using Low Osmolar Contrast (ICD-10-PCS; 2025-02-26)
PROC: B2111ZZ Fluoroscopy of Multiple Coronary Arteries using Low Osmolar Contrast (ICD-10-PCS; 2025-02-26)
DX: I42.9 Cardiomyopathy, unspecified (principal); I5A Non-ischemic myocardial injury (non-traumatic); I10 Essential (primary) hypertension; R55 Syncope and collapse; Z92.3 Personal history of irradiation
CPT/HCPCS: 71275; 80048; 80053; 80061; 82728; 83036; 83540; 83550; 84484; 85018; 85025; 85027; 85379; 85730; 93005; 93306; 93458; 96360; 99152; 99153; 99284; C1769; Q9950; Q9967

== ENCOUNTER → 2025-03-07 10:27 | Outpatient (REF) | payer OTHER, SELFPAY ==
[2025-03-07 11:00] LABS: Hematocrit 32.2 % (37.0-47.0); Hemoglobin 9.9 g/dL (12.0-16.0); Mean Corp Hgb Conc. 30.7 g/dL (33.0-37.0); Mean Corpuscular Volume 79.5 fL (81.0-99.0); Nucleated Red Blood Cells % 0 %; Platelet Count 342 10^3/uL (130-400); Red Cell Dist. Width 15.3 % (11.5-14.5)
[2025-03-07 11:25] LABS: Troponin I 0.018 ng/ml
[2025-03-07 11:34] LABS: ALT (SGPT) 16 U/L (0-35); AST (SGOT) 21 U/L (14-36); Albumin 4.4 g/dl (3.5-5.0); Alkaline Phosphatase 69 U/L (38-126); Blood Urea Nitrogen 13 mg/dl (7-17); Calcium 9.4 mg/dl (8.4-10.2); Carbon Dioxide 26 mmol/L (22-30); Chloride 106 mmol/L (98-107); Glucose 106 mg/dl (70-99); Potassium 4.3 mmol/L (3.5-5.1); Sodium 139 mmol/L (135-145); Total Protein 7.4 g/dl (6.3-8.2); eGFR > 60.00
== END ==
LOC: RAD 10:27
PROVIDERS: ATTENDING PHYSICIAN Nurse Practitioner Family; FAMILY PHYSICIAN Family Medicine
DX: M79.602 Pain in left arm (principal)
CPT/HCPCS: 36415; 80053; 83880; 84484; 85025; 93971